=== PATIENT | female | born 1955 | race Caucasian/White ===

== ENCOUNTER 2023-03-10 14:40 | Outpatient (REF) | payer MEDICARE, MEDICAID, SELFPAY | END 2023-03-10 14:41 | disposition home or self-care (01) | LOC: HO.HAP 14:40 | PROVIDERS: Visit Provider Internal Medicine | DX: Z13.89 Encounter for screening for other disorder (principal) ==

== ENCOUNTER 2023-08-01 11:28 | Outpatient (REF) | payer MEDICARE, MEDICAID, SELFPAY | END 2023-08-01 11:29 | disposition home or self-care (01) | LOC: HO.SH 11:28 | PROVIDERS: Visit Provider Internal Medicine | DX: H90.3 Sensorineural hearing loss, bilateral (principal) | CPT/HCPCS: 92592; 99499 ==

== ENCOUNTER 2024-06-24 14:59 | Outpatient (REF) | payer MEDICARE, MEDICAID, SELFPAY ==
--- OUTSIDE RECORDS SUMMARY | 2024-06-24 18:18 | XMS_ITS | Clinical Summary ---
Demographics Address [address] [place] [address] Home Phone Mobile Phone Preferred Language Mohawk; Castilian Marital Status Single Pentecostalism Affiliation Unknown Race Black or Florence rican Ethnic Group or Author Organization [facility] Address [address] [place] [address] Support Name Relationship Address Phone Iftikhar Espinal Son [address] [place] [address] Care Team Providers Care Oil Recovery Operator Name Role Phone Darrick Poon Primary Care Provider [phone] Source Comments PLEASE NOTE, if this patient is a minor, it may be UNLAWFUL to discuss sensitive information that is contained in these records (such as FAMILY PLANNING, MENTAL HEALTH or SUBSTANCE ABUSE) with the minor patient's parent or other person without the patient's specific authorization.[facility] Allergies No known active allergies Medications fluticasone (FLONASE) 50 mcg/actuation nasal sprayIndications :Dyspnea Place 1 [place] into the nostril(s) once daily. 16 g 1 4 Active albuterol sulfate hfa (PROVENTIL,MAR REMIGIO,PROAIR) 90 mcg/actuation inhalerIndicatio ns:History of reactive airway disease Inhale 2 Puffs into the lungs every 4 (four) hours as needed for shortness of breath or wheezing. 1 Inhaler 3 4 Active ranitidine (ZANTAC) 150 mg tabletIndication s:GERD (gastroesophagea l reflux disease) Take 1 Tab by mouth nightly at bedtime. 90 Tab 3 4 Active metFORMIN (GLUCOPHAGE) 500 mg tabletIndication s:Diabetes 1.5, managed as type 2 (HCC-CMS) Take 1 Tab by mouth 2 (two) times daily with a meal. 90 Tab 3 5 Active ibuprofen (ADVIL,MOTRIN) 400 mg tabletIndication s:Neuropathy due to type 2 diabetes mellitus (HCC-CMS) Take 1 Tab by mouth 3 (three) times daily as needed for pain. 30 Tab 3 5 Active blood sugar diagnostic (FREESTYLE LITE STRIPS) stripsIndication s:Type 2 diabetes mellitus without complication ([facility]) 1 Strip 3 (three) times daily. Diagnosis code E 11.9 diabetes type 2 without complication 100 Each 6 5 Active gabapentin (NEURONTIN) 100 mg capsuleIndicatio ns:Neuropathy due to type 2 diabetes mellitus ([facility]) Take 200 mg three times daily 180 Cap 3 5 Active traMADol (ULTRAM) 50 mg tabletIndication s:Neuropathy due to type 2 diabetes mellitus ([facility]),Pain in both feet Take 1 Tab by mouth 4 (four) times daily as needed for pain. 30 Tab 0 5 Active lancets (FREESTYLE LANCETS) 28 gauge 1 Each 3 (three) times daily. Dx. E11.9 100 Each 12 6 Active Active Problems Problem Noted Date Diagnosed Date Nuclear sclerotic cataract of both eyes 10/30/19 16 Overview (10/30/2015): [facility] Dr.John Colón Nuclear cataract, nonsenile 10/30/2015 Overview (10/30/2015): [facility]- Dr.John Colón Partial deafness 01/19/2014 Overview (01/19/2014): As per patient paper chart Polyp of urethra 01/19/2014 Overview (01/19/2014): As per patient paper chart ANGELICA (obstructive sleep apnea) 01/19/2014 Overview (01/19/2014): Dx 05/28/[address] 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 GERD (gastroesophageal reflux disease) Migraines Hemorrhoids Mental health disorder Overview (11/05/2012): Patient sees psychologist High cholesterol Immunizations Name Administration Dates Next Due [id number] 07/22/2012 INFLUENZA, SEASONAL, INJECTABLE 02/02/20 15,02/21/2014,07/22/2012,03/26/2011, 02/12/2008 Social History Tobacco Use Types Packs/Day Years Used Date Smoking Tobacco: Never Alcohol Use Standard Drinks/Week Comments No 0 (1 standard drink = 0.6 oz pur e alcohol) Occasional Comments No Sex and Gender Information Value Date Recorded Sex Assigned at Not on file Legal Sex Female 11:36 AM PDT Gender Identity Not on file Sexual Orientation Not on file Last Filed Vital Signs Vital Sign Reading Time Taken Comments Blood Pressure 140/86 04/06/2015 2:53 PM EST Pulse 83 04/06/2015 2:53 PM EST Temperature 36.7 ??C (98.1 ??F) 04/06/2015 2:53 PM ES T Respiratory Rate 20 04/06/2015 2:53 PM EST Oxygen Saturation - - Inhaled Oxygen Concentration - - Weight 64.1 kg (141 lb 6.4 oz) 04/06/2015 2:53 P M EST Height 167.6 cm (5' 6 ) 02/01/2015 3:15 PM EDT Body Mass Index 22.82 02/01/2015 3:15 PM EDT Plan of Treatment Not on file Insurance [place]ARE - [place] Care Teams Oil Recovery Operator Relationship Specialty Start Date End Date Darrick Poon FNP [facility] [place] [id number] PCP - General Family Medicine, BOMB SQUAD OFFICER 01/20/14
--- OUTSIDE RECORDS SUMMARY | 2024-06-24 18:18 | XMS_ITS | Clinical Summary ---
Author Organization [facility] Address [address] [place] [address] Care Team Providers Care Optoelectronic Technician Name Role Phone Darlene Baldwin MD Primary Care Provider Social History Tobacco Use Types Packs/Day Years Used Date Smoking Tobacco: Never Assessed Comments Unknown Sex and Gender Information Value Date Recorded Sex Assigned at Not on file Legal Sex Female 4:29 AM EST Gender Identity Not on file Sexual Orientation Not on file Plan of Treatment Health Maintenance Due Date Last Done Comments Breast Cancer Screening 1955 DTaP,Tdap,and Td Vaccines (1 - Tdap) 1976 Pneumococcal Vaccine: 50+ Ye ars (1 of 1 - PCV) 07/10/2007 Zoster Vaccines (1 of 2) 07/10/2007 Colorectal Cancer Screening: Colonoscopy 03/31/2022 Depression Screening 03/31/2022 Hepatitis C Screening 03/31/2022 Osteoporosis Screening (Bone Density Screening) 03/31/2022 Social Influencers of Health Screening 03/31/2022 Falls Risk Assessment 2022 COVID-19 Vaccine ( - 2023-2 5 season) 2023 Influenza Vaccine (#1) 2023 RSV Immunization Patients 60 + Years Old (1 - 1-dose 75+ series) 2032 HIB Vaccines Aged Out No longer eligi ble based on patient's age to complete this topic HPV Vaccines Aged Out No longer eligi ble based on patient's age to complete this topic Hepatitis A Vaccines Aged Out No long er eligible based on patient's age to complete this topic Hepatitis B Vaccines Aged Out No long er eligible based on patient's age to complete this topic IPV Vaccines Aged Out No longer eligi ble based on patient's age to complete this topic MMR Vaccines Aged Out No longer eligi ble based on patient's age to complete this topic Meningococcal ACWY Vaccine Aged Out N o longer eligible based on patient's age to complete this topic Meningococcal B Vacine Aged Out No lo nger eligible based on patient's age to complete this topic RSV Immunization Patients Un len 20 months Aged Out No longer eligible b ased on patient's age to complete this topic Varicella Vaccines Aged Out No longer eligible based on patient's age to complete this topic Care Teams Optoelectronic Technician Relationship Specialty Start Date End Date Darlene Baldwin MD [address] [place] [address] PCP - General Internal Medicine 12/08/20
== END 2024-06-24 15:00 | disposition home or self-care (01) ==
LOC: HO.SH 14:59
PROVIDERS: Visit Provider Family Medicine
DX: Z01.118 Encounter for examination of ears and hearing with other abnormal findings (principal); H90.3 Sensorineural hearing loss, bilateral
CPT/HCPCS: 92552; 92592; 99499

== ENCOUNTER 2024-09-09 13:49 | Outpatient (REF) | payer MEDICARE, MEDICAID, SELFPAY ==
--- OUTSIDE RECORDS SUMMARY | 2024-09-09 14:30 | XMS_ITS | Clinical Summary ---
Author Organization [facility] Address [address] [place] [address] Care Team Providers Care Toolroom Checker Name Role Phone Darlene Baldwin MD Primary [...] - 2023-2 5 season) 2023 Influenza Vaccine (Season Ended) 2024 RSV Immunization Adult Patie nts (1 - 1-dose 75+ series) 2032 HIB [...] age to complete this topic Meningococcal B Vaccine Aged Out No l onger eligible based on patient's age to complete this topic RSV Immunization Patients Un len 20 months Aged Out No longer eligible b ased on patient's age to complete this topic Varicella Vaccines Aged Out No longer eligible based on patient's age to complete this topic Care Teams Toolroom Checker Relationship Specialty Start Date End Date Darlene Baldwin MD [address] [place] [address] PCP - General Internal Medicine 12/08/20
--- OUTSIDE RECORDS SUMMARY | 2024-09-09 14:30 | XMS_ITS | Clinical Summary ---
Demographics Address [address] [place] [address] Home Phone Mobile Phone Preferred Language Sri Lankan; Castilian Marital Status Single Sabianist Affiliation Unknown Race Black or Florence rican Ethnic Group or Author Organization [facility] Address [address] [place] [address] Support Name Relationship Address Phone Iftikhar Espinal Son [address] [place] [address] Care Team Providers Care Floor Clerk Name Role Phone Darrick Poon Primary Care Provider [phone] Source Comments PLEASE NOTE, if this patient is a minor, it may be UNLAWFUL to discuss sensitive information that is contained in these records (such as FAMILY PLANNING, MENTAL HEALTH or SUBSTANCE ABUSE) with the minor patient's parent or other person without the patient's specific authorization.[facility] Allergies No known active allergies Medications fluticasone (FLONASE) 50 mcg/actuation nasal sprayIndications :Dyspnea Place 1 [place] into the nostril(s) once daily. 16 g [...] stripsIndication s:Type 2 diabetes mellitus without complication ([facility]) 1 Strip 3 (three) times daily. 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
--- NOTE | 2024-09-09 14:54 | MHC.AU.HA3 ---
Hearing Instrument Follow-Up- Binaural Date of Visit: 09/09/24 Right Ear: Make, Model, Color, Serial Number: [id number] SN: [id number] Lary: 02/12/2024 (Dilip All Make) Oticon Xceed 3 BTE UP SN: [id number] Color: Black Park Maintenance Technician Repair Warranty: 02/04/2024 Park Maintenance Technician Loss and Damage Warranty: 02/04/2024 [facility] Service Plan: Battery Size: 675 Front End Driver/Slim Tube: Earmold/Dome/CShell/SlimTip:Microsonic M2000 full shell Type of Wax Guard: Dispensed By: [facility] Date of Fitting: December 2020 Left Ear: Make, Model, Color, Serial Number: [id number] SN: [id number] Lary: 03/02/2024 (Dilip All Make) Oticon Xceed 3 BTE UP SN: [id number] Color: Black Park Maintenance Technician Repair Warranty: 02/04/2024 Park Maintenance Technician Loss and Damage Warranty: 02/04/2024 [facility] Service Plan: Battery Size: 675 Front End Driver/Slim Tube: Earmold/Dome/CShell/SlimTip: Microsonic M2000 full shell Type of Wax Guard: Dispensed By: [facility] Date of Fitting: December 2020 Follow-Up Summary: Danna is here with her , today wearing her left hearing aid and has right hearing aid in its case without earmold. Retubed left device, cleaned earmold and hearing aid. Reports right earmold is at home, will connect to hearing aid for use as it was recently retubed. Follow up as needed. Recommendations: Recommendations: Hearing instrument follow-up or maintenance as needed. Diagnosis Code(s): Primary Diagnosis: H90.3 Bilateral Sensorineural Hearing Loss Signature: Provider: Brittany Pagan, CCC-A
== END 2024-09-09 13:50 | disposition home or self-care (01) ==
LOC: HO.HAP 13:49
PROVIDERS: Visit Provider Internal Medicine
DX: Z46.1 Encounter for fitting and adjustment of hearing aid (principal); H90.3 Sensorineural hearing loss, bilateral
CPT/HCPCS: 92592; 99499

== ENCOUNTER 2024-10-05 13:44 | Outpatient (REF) | payer MEDICARE, MEDICAID, SELFPAY ==
--- NOTE | 2024-10-05 16:06 | MHC.AU.HA3 ---
Hearing Instrument Follow-Up- Binaural Date of Visit: 10/05/24 Right Ear: Make, Model, Color, Serial Number: [id number] PL SN: [id number] Lary: 02/12/2024 (Dilip All Make) Oticon Xceed 3 BTE UP SN: [id number] Color: Black Clinical Research Associate Repair Warranty: 02/04/2024 Clinical Research Associate Loss and Damage Warranty: 02/04/2024 [facility] Service Plan: Battery Size: 675 Team Leader/Research Psychologist/Slim Tube: Earmold/Dome/CShell/SlimTip:Microsonic M2000 full shell Type of Wax Guard: Dispensed By: [facility] Date of Fitting: December 2020 Left Ear: Make, Model, Color, Serial Number: [id number] PL SN: [id number] Lary: 03/02/2024 (Dilip All Make) Oticon Xceed 3 BTE UP SN: [id number] Color: Black Clinical Research Associate Repair Warranty: 02/04/2024 Clinical Research Associate Loss and Damage Warranty: 02/04/2024 [facility] Service Plan: Battery Size: 675 Team Leader/Research Psychologist/Slim Tube: Earmold/Dome/CShell/SlimTip: Microsonic M2000 full shell Type of Wax Guard: Dispensed By: [facility] Date of Fitting: December 2020 Follow-Up Summary: Pt visited with [facility] and EM, no tubing present. Cleaned earmold (1), vacuumed mics and cleaned hearing aid (1), replaced tubing (1) (16382 x 3 units). Tonehooks beginning to get slightly loose, will order spares so they are in stock when pt needs replacements. Recommendations: Recommendations: Hearing instrument follow-up or maintenance as needed. Diagnosis Code(s): Primary Diagnosis: H90.3 Bilateral Sensorineural Hearing Loss Signature: Provider: Brittany Pagan, CCC-A
--- OUTSIDE RECORDS SUMMARY | 2024-10-05 16:16 | XMS_ITS | Clinical Summary ---
Author Organization [facility] Address [address] [place] [address] Care Team Providers Care Food Processor Name Role Phone Darlene Baldwin MD Primary [...] age to complete this topic Care Teams Food Processor Relationship Specialty Start Date End Date Darlene Baldwin MD [address] [place] [address] PCP - General Internal Medicine 12/08/20
== END 2024-10-05 13:45 | disposition home or self-care (01) ==
LOC: HO.HAP 13:44
PROVIDERS: Visit Provider Internal Medicine
DX: Z46.1 Encounter for fitting and adjustment of hearing aid (principal); H90.3 Sensorineural hearing loss, bilateral
CPT/HCPCS: 92592; 99499

== ENCOUNTER 2024-12-07 08:28 | Outpatient (REF) | payer MEDICARE, MEDICAID, SELFPAY ==
--- OUTSIDE RECORDS SUMMARY | 2024-12-07 08:46 | XMS_ITS | Clinical Summary ---
Author Organization [facility] Address [address] [place] [address] Care Team Providers Care Nuclear Spectroscopist Name Role Phone Darlene Baldwin MD Primary [...] 2) 07/10/2007 Colorectal Cancer Screening: Colonoscopy 03/31/2022 Hepatitis C Screening 03/31/2022 Osteoporosis Screening (Bone Density Screening) 03/31/2022 Social Influencers of Health Screening 03/31/2022 Falls Risk Assessment 2022 COVID-19 Vaccine (1 - 2023-2 5 season) 2023 Depression Screening 04/28/2024 Influenza Vaccine (#1) 2024 RSV Immunization Adult Patie nts (1 [...] age to complete this topic Care Teams Nuclear Spectroscopist Relationship Specialty Start Date End Date Darlene Baldiwn MD [address] [place] [address] PCP - General Internal Medicine 12/08/20
== END 2024-12-07 08:29 | disposition home or self-care (01) ==
LOC: HO.HAP 08:28
PROVIDERS: Visit Provider Pediatrics
DX: Z13.89 Encounter for screening for other disorder (principal)

== ENCOUNTER 2024-12-07 14:55 | Outpatient (REF) | payer MEDICARE, MEDICAID, SELFPAY ==
--- NOTE | 2024-12-07 15:43 | MHC.AU.HA3 ---
Hearing Instrument Follow-Up- Binaural Date of Visit: 12/07/24 Right Ear: Make, Model, Color, Serial Number: [id number] PL SN: [id number] Lary: 02/12/2024 (Dilip All Make) Oticon Xceed 3 BTE UP SN: [id number] Color: Black Chief Media Officer Repair Warranty: 02/04/2024 Chief Media Officer Loss and Damage Warranty: 02/04/2024 [facility] Service Plan: Battery Size: 675 Documentation Lead/Slim Tube: Earmold/Dome/CShell/SlimTip:Microsonic M2000 full shell Type of Wax Guard: Dispensed By: [facility] Date of Fitting: December 2020 Left Ear: Kamron, Model, Color, Serial Number: [id number] PL SN: [id number] Lary: 03/02/2024 (Dilip All Make) Oticon Xceed 3 BTE UP SN: [id number] Color: Black Chief Media Officer Repair Warranty: 02/04/2024 Chief Media Officer Loss and Damage Warranty: 02/04/2024 [facility] Service Plan: Battery Size: 675 Documentation Lead/Slim Tube: Earmold/Dome/CShell/SlimTip: Microsonic M2000 full shell Type of Wax Guard: Dispensed By: [facility] Date of Fitting: December 2020 Follow-Up Summary: Danna is seen with her for HAP. Both hearing aids without tubes, left is missing tonehook. Cleaned aids (2) and earmolds (2). Retubed earmolds (2) for [address] 6 units. No tonehooks for 390PL in stock. Ordering tonehooks. Will call Danna to come have tonehook replaced on left aid upon arrival. Recommendations: Recommendations: Patient will be contacted when materials have arrived. needs appointment Diagnosis Code(s): Primary Diagnosis: H90.3 Bilateral Sensorineural Hearing Loss Signature: Provider: Natalia Lopez, [facility]
--- OUTSIDE RECORDS SUMMARY | 2024-12-07 15:45 | XMS_ITS | Clinical Summary ---
Demographics Address [address] [place] [address] Home Phone Mobile Phone Preferred Language Luxembourgish; Castilian Marital Status Single Christian Affiliation Unknown Race Black or Florence rican Ethnic Group or Author Organization [facility] Address [address] [place] [address] Support Name Relationship Address Phone Iftikhar Espinal Son [address] [place] [address] Care Team Providers Care Sales And Events Coordinator Name Role Phone VusamiDarrick Primary Care Provider [phone] Source Comments PLEASE NOTE, if this patient is a minor, it may be UNLAWFUL to discuss sensitive information that is contained in these records (such as FAMILY PLANNING, MENTAL HEALTH or SUBSTANCE ABUSE) with the minor patient's parent or other person without the patient's specific authorization.[facility] Allergies No known active allergies Medications fluticasone (FLONASE) 50 mcg/actuation nasal sprayIndications :Dyspnea Place 1 [place] into the nostril(s) once daily. 16 g [...] tabletIndication s:Diabetes 1.5, managed as type 2 (CMS & HHS-HCC) Take 1 Tab by mouth 2 (two) times daily with a meal. 90 Tab 3 5 Active ibuprofen (ADVIL,MOTRIN) 400 mg tabletIndication s:Neuropathy due to type 2 diabetes mellitus (CMS & HHS-HCC) Take 1 Tab by mouth 3 (three) times daily as needed for pain. 30 Tab 3 5 Active blood sugar diagnostic (FREESTYLE LITE STRIPS) stripsIndication s:Type 2 diabetes mellitus without complication ([facility]) 1 Strip 3 (three) times daily. Diagnosis code E 11.9 diabetes type 2 without complication 100 Each 6 5 Active gabapentin (NEURONTIN) 100 mg capsuleIndicatio ns:Neuropathy due to type 2 diabetes mellitus ([facility]) Take 200 mg three times daily 180 Cap 3 5 Active traMADol (ULTRAM) 50 mg tabletIndication s:Neuropathy due to type 2 diabetes mellitus ([facility]),Pain in both feet Take 1 Tab by [...] chart Diabetes 1.5, managed as type 2 ([facility]) 08/18/2013 GERD (gastroesophageal reflux disease) Migraines Hemorrhoids Mental health disorder Overview (11/05/2012): Patient sees psychologist High cholesterol Immunizations Immunization Administration Dates Next Due [id number]-[id number] (Pentacel) 07/22/2012 INFLUENZA, SEASONAL, INJECTABLE 02/02/20 15,02/21/2014,07/22/2012,03/26/2011, [...] 83 04/06/2015 2:53 PM EST Temperature 36.7 C (98.1 F) 04/06/2015 2:53 PM EST Respiratory Rate 20 04/06/2015 2:53 PM EST Oxygen Saturation - - Inhaled Oxygen Concentration - - Weight 64.1 kg (141 lb 6.4 oz) 04/06/2015 2:53 P M EST Height 167.6 cm (5' 6 ) 02/01/2015 3:15 PM EDT Body Mass Index 22.82 02/01/2015 3:15 PM EDT Plan of Treatment Not on file Insurance [place] Member Subscriber Plan / Payer (Ef fective 2012-Present) Name:Danna Garcia Relation to Subscriber:Self Name:Danna Garcia Payer ID:[id number] Group ID:Not on file Type:Medicaid Address: [address] [address] MEDICARE - [place] Care Teams Sales And Events Coordinator Relationship Specialty Start Date End Date Darrick Poon FNP [address] [place] [address] PCP - General Family Medicine, TOWING PILOT 01/20/14
== END 2024-12-07 14:56 | disposition home or self-care (01) ==
LOC: HO.HAP 14:55
PROVIDERS: Visit Provider Pediatrics
DX: H90.3 Sensorineural hearing loss, bilateral (principal)
CPT/HCPCS: 92593; 99499

== ENCOUNTER 2025-01-03 14:27 | Outpatient (REF) | payer MEDICARE, MEDICAID, SELFPAY ==
--- NOTE | 2025-01-03 14:52 | MHC.AU.HA3 ---
Hearing Instrument Follow-Up- Binaural Date of Visit: 01/03/25 Right Ear: Make, Model, Color, Serial Number: [id number] SN: [id number] Lary: 02/12/2024 (Dilip All Make) Oticon Xceed 3 BTE UP SN: [id number] Color: Black Latcher Repair Warranty: 02/04/2024 Latcher Loss and Damage Warranty: 02/04/2024 Battery Size: 675 Earmold/Dome/CShell/SlimTip:Microsonic M2000 full shell Dispensed By: [facility] Date of Fitting: December 2020 Left Ear: Kamron, Model, Color, Serial Number: [id number] PL SN: [id number] Lary: 03/02/2024 (Dilip All Make) Oticon Xceed 3 BTE UP SN: [id number] Color: Black Latcher Repair Warranty: 02/04/2024 Latcher Loss and Damage Warranty: 02/04/2024 Battery Size: 675 Earmold/Dome/CShell/SlimTip: Microsonic M2000 full shell Dispensed By: [facility] Date of Fitting: December 2020 Follow-Up Summary: Danna is seen to have new tone hook placed on hearing aid as she was missing one at last visit and we had none in stock for her hearing aids (390PL). She reports that the tone hook that she still had on the other aid is loose and she is getting feedback. Replaced both tone hooks. Danna reports improvement. Recommendations: Recommendations: Hearing instrument follow-up or maintenance as needed. Diagnosis Code(s): Primary Diagnosis: H90.3 Bilateral Sensorineural Hearing Loss Signature: Provider: Natalia Lopez, [facility]
--- OUTSIDE RECORDS SUMMARY | 2025-01-03 16:49 | XMS_ITS | Clinical Summary ---
Author Organization [facility] Address [address] [place] [address] Care Team Providers Care Slate Cutter Name Role Phone Darlene Baldwin MD Primary [...] Health Screening 03/31/2022 Falls Risk Assessment 2022 Depression Screening 04/28/2024 COVID-19 Vaccine ( - 2023-2 5 season) 2024 Influenza Vaccine (#1) 2024 RSV Immunization Adult [...] age to complete this topic Care Teams Slate Cutter Relationship Specialty Start Date End Date Darlene Baldwin MD [address] [place] [address] PCP - General Internal Medicine 12/08/20
--- OUTSIDE RECORDS SUMMARY | 2025-01-03 16:49 | XMS_ITS | Clinical Summary ---
Demographics Address [address] [place] [address] Home Phone Mobile Phone Preferred Language Maltese; Castilian Marital Status Single Taoist Affiliation Unknown Race Black or Florence rican Ethnic Group or Author Organization [facility] Address [address] [place] [address] Support Name Relationship Address Phone Iftikhar Espinal Son [address] [place] [address] Care Team Providers Care Revenue Liaison Name Role Phone VusamiDarrick Primary Care Provider [phone] Source Comments PLEASE NOTE, if this patient is a minor, it may be UNLAWFUL to discuss sensitive information that is contained in these records (such as FAMILY PLANNING, MENTAL HEALTH or SUBSTANCE ABUSE) with the minor patient's parent or other person without the patient's specific authorization.[facility] Allergies No known active allergies Medications fluticasone (FLONASE) 50 mcg/actuation nasal sprayIndications :Dyspnea Place 1 [place] into the nostril(s) once daily. 16 g [...] stripsIndication s:Type 2 diabetes mellitus without complication ([facility]) 1 Strip 3 (three) times daily. Diagnosis code E 11.9 diabetes type 2 without complication 100 Each 6 5 Active gabapentin (NEURONTIN) 100 mg capsuleIndicatio ns:Neuropathy due to type 2 diabetes mellitus ([facility]) Take 200 mg three times daily 180 Cap 3 5 Active traMADol (ULTRAM) 50 mg tabletIndication s:Neuropathy due to type 2 diabetes mellitus ([facility]),Pain in both feet Take 1 Tab by [...] chart Diabetes 1.5, managed as type 2 ([facility]) 08/18/2013 GERD (gastroesophageal reflux disease) Migraines Hemorrhoids Mental health disorder Overview (11/05/2012): Patient sees psychologist High cholesterol Immunizations Immunization Administration Dates Next Due [id number] (Pentacel) 07/22/2012 INFLUENZA, SEASONAL, INJECTABLE 02/02/20 15,02/21/2014,07/22/2012,03/26/2011, [...] Garcia Relation to Subscriber:Self Name:Danna Garcia Payer ID:[id number] Group ID:Not on file Type:Medicaid Address: [address] [id number] MEDICARE - [place] Care Teams Revenue Liaison Relationship Specialty Start Date End Date Darrick Poon FNP [address] [place] [id number] PCP - General Family Medicine, [facility] [facility]TER 01/20/14
== END 2025-01-03 14:28 | disposition home or self-care (01) ==
LOC: HO.HAP 14:27
PROVIDERS: Visit Provider Family Medicine
DX: Z46.1 Encounter for fitting and adjustment of hearing aid (principal); H90.3 Sensorineural hearing loss, bilateral
CPT/HCPCS: 92593